=== PATIENT | female | born 1955 | race Caucasian/White ===

== ENCOUNTER → 2019-10-15 | Outpatient (CLI) | payer OTHER | LOC: M.RAD 10-03 10:58 | DX: Z12.31 Encounter for screening mammogram for malignant neoplasm of breast (principal); M54.41 Lumbago with sciatica, right side; G89.29 Other chronic pain; M51.25 Other intervertebral disc displacement, thoracolumbar region; M51.26 Other intervertebral disc displacement, lumbar region; M25.78 Osteophyte, vertebrae; M51.27 Other intervertebral disc displacement, lumbosacral region ==